=== PATIENT | female | born 1970 | race American Indian/Alaskan Native ===

== ENCOUNTER 2022-05-01 11:46 | Emergency (ER) | payer SELFPAY ==
[2022-05-01 14:32] VITALS: BP 128/88
[2022-05-01] MEDS ORDERED: LIDOCAINE (1%) 10 MG/1 ML VIAL 20 ML MDV INFILTRATI ONE (15:00)
--- NOTE | 2022-05-01 15:07 | Emergency Department Report ---
ED General Adult HPI - General Chief complaint: Skin/Abscess/Foreign Body Stated complaint: RT BREAST/CYST Source: patient Mode of arrival: Ambulatory Limitations: No Limitations - History of Present Illness Initial comments: Patient is a 51-year-old -Turk[place] female with no past medical history presents to the ED with complaint of acute onset persistent painful swollen medial right breast rash for the last 2 weeks. Patient states that the pain has been constant and persistent and worsened especially in the last 4 days. Patient states that she previously experienced similar symptoms in the same spot but which healed subsequently on its own. Patient states that she has not been able to sleep in the last 2 days because of worsening pain. Patient denies dizziness, syncope, chest pain, shortness of breath, nausea and vomiting, headache, traumatic injury, cough, sore throat, change in vision, fall or heavy lifting. MD Complaint: Swollen painful rash on right breast -: week(s) (2) Location: chest (right breast) Radiation: non-radiation Severity scale (0 -10): 8 Quality: aching, sharp Consistency: constant Improves with: none Worsens with: none Associated Symptoms: denies other symptoms, rash (swollen painful erythematous rash on right breast). denies: confusion, chest pain, cough, diaphoresis, fever/chills, headaches, loss of appetite, malaise, shortness of breath, syncope, other Treatments Prior to Arrival: none - Related Data Previous Rx's Medication Instructions Recorded Last Taken Type Acetaminophen/Codeine [Tylenol 1 tab PO Q6H PRN #10 tab 05/01/22 Unknown Rx /Codeine # 3 tab] Ibuprofen [Motrin] 600 mg PO Q8H PRN #30 tablet 05/01/22 Unknown Rx Sulfamethoxazole/Trimethoprim 1 each PO Q12H #20 tab 05/01/22 Unknown Rx [Bactrim DS TAB] Allergies Allergy/AdvReac Type Severity Reaction Status Date / Time No Known Allergies Allergy Verified 05/01/22 14:32 ED Review of Systems ROS: Stated complaint: RT BREAST/CYST Other details as noted in HPI Constitutional: denies: chills, fever Eyes: denies: eye pain, eye discharge, vision change ENT: denies: ear pain, throat pain Respiratory: denies: cough, shortness of breath, wheezing Cardiovascular: denies: chest pain, palpitations Endocrine: no symptoms reported Gastrointestinal: denies: abdominal pain, nausea, diarrhea Genitourinary: denies: urgency, dysuria, discharge Musculoskeletal: denies: back pain, joint swelling, arthralgia Skin: rash (Swollen, painful, mild erythematous maculopapular rash on right breast), change in color. denies: lesions Neurological: denies: headache, weakness, paresthesias Psychiatric: denies: anxiety, depression Hematological/Lymphatic: denies: easy bleeding, easy bruising ED Past Medical Hx - Medications Home Medications: Home Medications Medication Instructions Recorded Confirmed Last Taken Type Acetaminophen/Codeine [Tylenol 1 tab PO Q6H PRN #10 tab 05/01/22 Unknown Rx /Codeine # 3 tab] Ibuprofen [Motrin] 600 mg PO Q8H PRN #30 tablet 05/01/22 Unknown Rx Sulfamethoxazole/Trimethoprim 1 each PO Q12H #20 tab 05/01/22 Unknown Rx [Bactrim DS TAB] ED Physical Exam - General Limitations: No Limitations General appearance: alert, in no apparent distress - Head Head exam: Present: atraumatic, normocephalic, normal inspection - Eye Eye exam: Present: normal appearance, PERRL, EOMI Pupils: Present: normal accommodation - ENT ENT exam: Present: normal exam, normal orophraynx, mucous membranes moist, TM's normal bilaterally, normal external ear exam - Neck Neck exam: Present: normal inspection, full ROM - Respiratory Respiratory exam: Present: normal lung sounds bilaterally, other (Palpable right breast tenderness due to mild erythematous maculopapular fluctuant rash). Absent: respiratory distress, wheezes, rales, rhonchi, stridor, chest wall tenderness, prolonged expiratory - Cardiovascular Cardiovascular Exam: Present: regular rate, normal rhythm, normal heart sounds. Absent: systolic murmur, diastolic murmur, rubs, gallop - GI/Abdominal GI/Abdominal exam: Present: soft, normal bowel sounds. Absent: tenderness, guarding, rebound, hyperactive bowel sounds, hypoactive bowel sounds, organomegaly - Extremities Exam Extremities exam: Present: normal inspection, full ROM, normal capillary refill. Absent: tenderness - Back Exam Back exam: Present: normal inspection, full ROM. Absent: tenderness, CVA tenderness (R), CVA tenderness (L), muscle spasm, paraspinal tenderness, vertebral tenderness - Neurological Exam Neurological exam: Present: alert, oriented X3, CN II-XII intact, normal gait, reflexes normal - Psychiatric Psychiatric exam: Present: normal affect, normal mood - Skin Skin exam: Present: warm, dry, intact, normal color, rash (Swollen, erythematous maculopapular fluctuant rash on right breast), erythema ED Course Vital Signs 05/01/22 14:29 Temperature 98.5 F Pulse Rate 92 H Respiratory 20 Rate Blood Pressure 128/88 [Right] O2 Sat by Pulse 100 Oximetry - I & D Right Medial Breast Type of Procedure: Simple Site: Medial right breast wall Blade Size: 20-gauge needle for aspiration I & D Procedure: betadine prep, sterile drapes applied, sterile dressing applied Progress: The wound was cleaned with normal saline and Betadine solution. Lidocaine 1% solution was infiltrated around the area for anesthesia. When anesthesia was fully achieved, a 20-gauge needle was used to aspirate the contents of the abscess on the right medial breast. Copious thick purulent discharge drained from the area. The wound was extensively debrided with normal saline and dressed appropriately with 4 x 4 gauze and Tegaderm. Patient tolerated the procedure well. Patient was therefore discharged home on pain medications and antibiotics and advised to follow-up with her primary care physician in 7 to 10 days for reevaluation or return to the ED immediately if symptoms get worse. ED Medical Decision Making - Medical Decision Making This is a 51-year-old -Turk[place] female with no past medical history presents to the ED with complaint of acute onset persistent painful swollen medial right breast rash for the last 2 weeks. Patient states that the pain has been constant and persistent and worsened especially in the last 4 days. Patient states that she previously experienced similar symptoms in the same spot but which healed subsequently on its own. Patient states that she has not been able to sleep in the last 2 days because of worsening pain. In the ED, patient is alert and oriented x3 and is not in any distress. The area was cleaned extensively normal saline and Betadine solutions. Lidocaine 1% solution was infiltrated around the area for anesthesia. When anesthesia was fully achieved, a 20-gauge needle was used to aspirate the wound contents. Copious thick purulent malodorous discharge drained from the wound. The wound was extensively debrided with normal saline and dressed appropriately with 4 x 4 gauze and Tegaderm. Patient tolerated the procedure well. On reevaluation, patient's pain is well controlled medication. Patient was therefore discharged home on pain medication and antibiotics and advised to follow-up with her primary care physician in 7 to 10 days for reevaluation or return to the ED immediately if symptoms get worse. - Differential Diagnosis Cellulitis; mastitis; folliculitis; cutaneous abscess Critical care attestation.: If time is entered above; I have spent that time in minutes in the direct care of this critically ill patient, excluding procedure time. ED Disposition Clinical Impression: Cellulitis of right breast, Acute folliculitis Disposition: HOME / SELF CARE / HOMELESS Is pt being admited?: No Does the pt Need Aspirin: No Condition: Stable Instructions: Cellulitis, Adult, [id number], Folliculitis Additional Instructions: Take medication with food, drink plenty of fluids, follow-up with your primary care physician in 7 to 10 days for reevaluation. Return to the ED immediately if symptoms get worse Prescriptions: Sulfamethoxazole/Trimethoprim [Bactrim DS TAB] 1 each PO Q12H #20 tab Ibuprofen [Motrin] 600 mg PO Q8H PRN #30 tablet PRN Reason: Pain Acetaminophen/Codeine [Tylenol /Codeine # 3 tab] 1 tab PO Q6H PRN #10 tab PRN Reason: Pain , Severe (7-10) Referrals: [facility] [Provider Group] - 7-10 days Time of Disposition: 15:13 Print Language: [id number]
== END 2022-05-01 16:00 | disposition home or self-care (01) ==
LOC: ED 11:46
DX: N61.0 Mastitis without abscess (principal); L73.9 Follicular disorder, unspecified
CPT/HCPCS: 99282